=== PATIENT | female | born 1995 | race Caucasian/White ===

== ENCOUNTER → 2018-05-31 18:37 | Outpatient (CLI) | payer OTHER, SELFPAY ==
--- NOTE | 2018-05-31 | DI.MRI.S_ITS ---
PROCEDURE: MR LUMBAR SPINE WO CON INDICATIONS: Lumbar region radiculopathy TECHNIQUE: Noncontrast sagittal T1 spin echo and T2 fast echo, sagittal STIR, axial T1 and T2 fast spin echo through the lumbar spine. In cases with scoliosis, additional coronal T2 fast spin echo may be performed. COMPARISON: [facility] Outside Film, RG, SPINE LUMB 2 OR 3VW, 04/27/2018, 10:35. FINDINGS: Image quality: Excellent. Alignment and Curvature: 5 lumbar type vertebral bodies are present by plain film. There is mild grade 1 retrolisthesis of L4 on L5, and mild grade 1 anterolisthesis of L5 on S1. Bone Marrow: Marrow is of normal overall signal. No acute vertebral body compression fractures. Bilateral L5-S1 pars interarticularis defects are present. Spinal Cord: Conus medullaris terminates at the mid L2 level. Visualized cord demonstrates normal signal and size. Paraspinous Soft Tissues: No paravertebral masses. L1-L2: Normal appearance. L2-L3: Normal appearance. L3-L4: Normal appearance. L4-L5: Normal appearance. L5-S1: Minimal disc desiccation and mild diffuse disc bulge. No significant canal stenosis. Mild foraminal stenosis bilaterally. IMPRESSION: 1. Grade I isthmic spondylolisthesis at L5-S1 associated with mild bilateral L5-S1 foraminal stenoses. Dictated by: Sonya Rios M.D. on 06/01/2018 at 9:13 Approved by: Sonya Rios M.D. on 06/01/2018 at 9:15
== END ==
PROVIDERS: PCP Physician Assistant; Visit Provider Physician Assistant
DX: M43.17 Spondylolisthesis, lumbosacral region (principal); M48.07 Spinal stenosis, lumbosacral region; M54.16 Radiculopathy, lumbar region
CPT/HCPCS: 72148

== ENCOUNTER 2018-12-01 05:33 | Emergency (ER) | payer OTHER, SELFPAY ==
[2018-12-01 05:41] VITALS: BP 113/71; PULSE 102; RESP 18; TEMP 36.9; O2SAT 100; BMI 21.2
--- NOTE | 2018-12-01 05:45 | ED.FEMALEGU ---
HPI - Female Genitourinary General Chief complaint: Urogenital-Female Stated complaint: blood in urine Time Seen by Provider: 12/01/18 05:35 Source: patient Mode of arrival: ambulatory Limitations: no limitations History of Present Illness HPI Narrative: 23F non smoker presents with superpubic discomfort, urinary frequency, urgency, and hematuria over the past few hours. She denies vaginal bleeding or discharge. She's had no fever, chills, N/V/D MD Complaint: dysuria and UTI Female Urogenital Radiation: Suprapubic Severity: mild Quality: Aching and Burning Duration: constant Relieving factors: none Exacerbating factors: none Urinary symptoms: Difficulty Urinating, Foul Smelling Urine, Frequency, Hematuria and Urgency Patient : No Associated symptoms: denies other symptoms Related Data Home Medications Medication Instructions Recorded Confirmed vit-iron fum-folic ac 1 cap PO QDAY #0 07/29/17 [Mynatal] Previous Rx's Medication Instructions Recorded docusate sodium 250 mg PO QDAY PRN #20 cap 02/11/18 ibuprofen 600 mg PO Q6HP PRN #30 tab 02/11/18 oxycodone-acetaminophen 1 - 2 tab PO Q4HP PRN #20 tab 02/11/18 cephalexin [Keflex] 500 mg PO QID 5 Days #20 cap 12/01/18 Review of Systems Constitutional Denies chills, Denies fever(s), Denies lethargy and Denies weakness Eyes Denies change in vision, Denies eye discharge, Denies irritation and Denies loss of vision ENT Ears, Nose, Mouth, and Throat: Denies change in voice, Denies neck pain and Denies sore throat Cardiovascular Denies chest pain, Denies irregular heart rhythm, Denies lightheadedness, Denies palpitations, Denies dyspnea, Denies dyspnea on exertion and Denies orthopnea Respiratory Denies cough, Denies dyspnea, Denies dyspnea on exertion and Denies wheezing Gastrointestinal Gastrointestinal: Denies abdominal pain, Denies change in bowel habits, Denies diarrhea, Denies nausea and Denies vomiting Genitourinary Reports hematuria, Denies flank pain, Reports urinary incontinence and Reports urinary urgency Musculoskeletal Denies neck pain Integumentary/Breasts Denies pruritus, Denies erythema, Denies rash and Denies wounds Neurologic Denies confusion, Denies loss of vision and Denies weakness Psychiatric Denies anxiety, Denies confusion, Denies depression, Denies homicidal ideation and Denies suicidal ideation Endocrine Denies palpitations Hematologic/Lymphatic Denies easy bruising Allergic/Immunologic Denies wheezing [facility] Social History Smoking Status: Never smoker Exam Narrative Exam Narrative: GEN: AOx3 and in mild distress EYES: Pupils are equal, round, and reactive to light and accommodation. Extraoccular muscles are intact bilaterally. There is no subconjunctival hemorrhage or exudate. CHEST: Lungs are clear to auscultation bilaterally and free of wheezes, rales, or rhonchi. Heart rate is regular rhythm, there are no murmurs, clicks, rubs, or gallops. There is no chest wall tenderness. ABD: Abdomen is soft and mildly tender in suprapubic region. There is no guarding or rebound. Bowel sounds are normal in all 4 quadrants. There is no mass or organomegaly. EXT: Full painless ROM of all extremities with no loss of sensation or strength. SKIN: Warm, pink, and dry. No erythema or rash Initial Vital Signs Initial Vital Signs: Vital Signs Temperature 98.4 F 12/01/18 05:41 Pulse Rate 102 H 12/01/18 05:41 Respiratory Rate 18 12/01/18 05:41 Blood Pressure 113/71 12/01/18 05:41 Pulse Oximetry 100 12/01/18 05:41 Course Orders Ordered: ED Orders 12/01/18 05:40 Test Urine Stat UA Complete [Urinalysis and Microscopic] Stat Urine Culture Stat Discontinued Medications Cephalexin HCl (Keflex) 500 mg PO NOW ONE Stop: 12/01/18 06:08 Vital Signs - 8 hr 12/01/18 05:41 Temperature 98.4 F Pulse Rate 102 H Respiratory Rate 18 Blood Pressure 113/71 Pulse Oximetry 100 MDM - Female Genitourinary Differential Diagnosis Likely urinary tract infection and cystitis Medical Records Attestation: I reviewed the patient's medical records. Lab Data Attestation: I reviewed the patient's lab results. Lab Results 12/01/18 12/01/18 Range/Units 05:40 05:40 Urine Color Red Urine Appearance Cloudy Urine pH 5.5 (4.5-8.0) Ur Specific [place] 1.025 (1.000-1.035) Urine Protein 2+ H (Negative) Urine Glucose (UA) Negative (Negative) g/dL Urine Ketones Negative (NEGATIVE) Urine Occult Blood 3+ H (Negative) Urine Nitrate Negative (Negative) Urine Bilirubin Negative (NEGATIVE) Urine Urobilinogen 0.2 (0.2) E.U./dL Ur Leukocyte Esterase 2+ H (NEGATIVE) Urine RBC 30-100/hpf H (0-5/HPF) Urine WBC 30-100/hpf H (0-5/HPF) Ur Squamous Epith Cells 1-5 /hpf Urine Bacteria Moderate (10-30) H (None) Ur Culture Indicated? Specimen cultured Urine Test Negative (Negative) MDM Narrative Medical decision making narrative: Multiple etiologies for patient's symptoms considered including: [UTI, cystitis, pyelonephritis, kidney stone] Patient's symptoms improved or duration of stay with above-stated therapies. Findings and discharge diagnosis discussed with patient/family followed by verbalization of understanding Return precautions discussed with patient/family whom verbalize understanding. Discharge Plan Departure Patient Disposition: Home Clinical Impression: UTI (urinary tract infection) Instructions: DI for Urinary Tract Infection (UTI) Activity Restrictions/Additional Instructions: *You have been diagnosed with [ acute urinary tract infection with cystitis ] *What to do: *Take medications as directed *Follow up with your primary care provider in 2-3 days, call for an appointment. Let them know you were seen in the Emergency Department and that we ask that you be seen in follow up *Return to ER if you should have any new, worsening or concerning symptoms, such as [ increasing pain, fever over 101 F, shaking chills, persistent vomiting, other bothersome symptoms] Prescriptions: New cephalexin [Keflex] 500 mg capsule 500 mg PO QID 5 Days Qty: 20 RF: 0 No Action vit-iron fum-folic ac [Mynatal] 1 EACH capsule 1 cap PO QDAY Qty: 0 RF: 0 ibuprofen 600 MG tablet 600 mg PO Q6HP PRNQty: 30 RF: 0 oxycodone-acetaminophen 5 MG/325 MG tablet 1 - 2 tab PO Q4HP PRNQty: 20 RF: 0 docusate sodium 250 MG capsule 250 mg PO QDAY PRNQty: 20 RF: 0 Referrals: Ton Perez PA-C [Primary Care Provider] -
[2018-12-01 05:59] LABS: Appearance Urine UA CLOUDY; Bilirubin Urine UA NEGATIVE (NEGATIVE); Color Urine UA RED; Glucose Urine UA NEGATIVE (Negative); Ketones Urine UA NEGATIVE (NEGATIVE); Leukocyte Esterase Urine UA 2+ (NEGATIVE); Nitrite Urine UA NEGATIVE (Negative); Occult Blood Urine UA 3+ (Negative); Protein Urine UA 2+ (Negative); Specific Gravity Urine UA 1.025 (1.000-1.035); Urobilinogen Urine UA 0.2 E.U./dL (0.2); pH Urine UA 5.5 (4.5-8.0)
[2018-12-01 06:06] LABS: Bacteria Urine Moderate (10-30); Culture Indicated Urine Specimen Cultured; RBC Urine 30-100/HPF (0-5/HPF); Squamous Epithelial Cell Urine 1-5 /HPF; WBC Urine 30-100/HPF (0-5/HPF)
[2018-12-01 06:21] LABS: Pregnancy Test Urine Negative (Negative)
[2018-12-01] MEDS: cephALEXin 250 MG CAPSULE 500 MG PO (06:39)
[2018-12-01 06:54] VITALS: BP 121/77; PULSE 92; RESP 16; O2SAT 99
--- NOTE | 2018-12-05 16:20 | PC.NURSE ---
follow up call: pt reports feeling better, unable to f/u with pcp at this time.
== END 2018-12-01 06:56 | disposition home or self-care (01) ==
PROVIDERS: Emergency Provider Emergency Medicine; PCP Physician Assistant
DX: N39.0 Urinary tract infection, site not specified (principal)
CPT/HCPCS: 81001; 81025; 87077; 87086; 87186; 99282; 99283